=== PATIENT | male | born 2000 | race African-American/Black ===

== ENCOUNTER 2024-01-25 20:07 | Inpatient (IN) | payer OTHER ==
[~2024-01-25] VITALS: Ht 167.6 cm; Wt 83.8 kg
[2024-01-25] MEDS: EPINEPHrine INJ 1 MG/ML 1ML AMP IM STA (20:26)
[2024-01-25] MEDS: ONDANSETRON 4MG 2ML VIAL IV ONE (20:30)
[2024-01-25] MEDS: FAMOTIDINE 20MG/2ML VIAL IVP ONE (20:30)
[2024-01-25] MEDS: diphenhydrAMINE 50MG/ML VIAL IV ONE (20:30)
[2024-01-25] MEDS: SODIUM CHLORIDE IV ONE (20:31)
[2024-01-25 20:37] LABS: BASO % 0.3 % (0.0-1.0); EOS # 0.2 10^3/uL (0.0-0.5); EOS % 1.5 % (0.0-3.0); HEMATOCRIT 45.5 % (42.0-52.0); HEMOGLOBIN 15.5 g/dl (13.5-17.5); LYMPH # 1.9 10^3/uL (1.5-5.0); LYMPH % 16.3 % (24.0-44.0); MEAN CORPUSCULAR HEMOGLOBIN 26.1 pg (27.0-33.0); MEAN CORPUSCULAR HGB CONC 34.1 g/dl (32.0-36.5); MEAN CORPUSCULAR VOLUME 76.6 fl (80.0-96.0); MONO # 0.6 10^3/uL (0.0-0.8); MONO % 5.2 % (2.0-8.0); NEUTROPHILS % 76.3 % (36.0-66.0); PLATELET COUNT, AUTOMATED 333 10^3/uL (150-450); RED BLOOD COUNT 5.94 10^6/uL (4.30-6.10); WHITE BLOOD COUNT 11.8 10^3/uL (4.0-10.0)
[2024-01-25 20:39] LABS: ABG BASE EXCESS -2.3 (-2.0-2.0); ABG HCO3 20.5 MMOL/L (22.0-26.0); ABG O2 SATURATION 94.3 % (95.0-99.0); ABG PARTIAL PRESSURE CO2 30.4 mmHg (35.0-45.0); ABG STANDARD HCO3 22.5 MMOL/L. (22.0-26.0); ABG TOTAL CO2 21.4 MMOL/L (22.0-29.0); ABG pH (ARTERIAL) 7.447 UNITS (7.350-7.450)
[2024-01-25] MEDS: IPRATROPIUM 0.5MG/ALBUTEROL 2.5MG INH SOL UD 3ML (DUONEB) NEB ONE ×2 (20:46)
[2024-01-25 21:03] LABS: ALBUMIN 3.3 G/DL (3.2-5.2); ALKALINE PHOSPHATASE 70 U/L (46-116); ALT/SGPT 57 U/L (7.0-40); AST/SGOT 42 U/L (<34); BILIRUBIN,DIRECT 0.2 MG/DL (<0.4); BILIRUBIN,TOTAL 0.6 MG/DL (0.3-1.2); BLOOD UREA NITROGEN 10 MG/DL (9-23); CARBON DIOXIDE LEVEL 25 MMOL/L (20-31); CHLORIDE LEVEL 101 MMOL/L (98-107); CREATININE FOR GFR 1.08 MG/DL (0.70-1.30); GLOMERULAR FILTRATION RATE > 60.0 (>60); GLUCOSE, FASTING 111 MG/DL (60-100); SODIUM LEVEL 134 MMOL/L (136-145); TOTAL PROTEIN 7.5 G/DL (5.7-8.2)
[2024-01-25] MEDS: LEVALBUTEROL 1.25MG 0.5ML CONCENTRATE NEB NEB ONE ×2 (22:04)
[2024-01-26 00:59] VITALS: O2SAT 85
[2024-01-26] MEDS: AZITHROMYCIN INJ 500 MG, VIAL MATE ADAPTER 1 EACH in NS 250 ML IV ONE (01:51)
[2024-01-26] MEDS ORDERED: ISOVUE-370 76% 100ML VIAL As Ordered ONE (01:58)
[2024-01-26] MEDS: cefTRIAXone SOD 1 GM in D5W MINI-BAG PLUS 50 ML IV ONE (03:13)
[2024-01-26] MEDS ORDERED: MOM 30ML SUSPENSION UDC PO PRN (04:35)
[2024-01-26] MEDS ORDERED: ACETAMINOPHEN 325 MG TAB PO PRN (04:35)
[2024-01-26] MEDS ORDERED: MAALOX 30 ML SUSP *UDC PO PRN (04:35)
[2024-01-26] MEDS ORDERED: diphenhydrAMINE 50MG/ML VIAL IV PRN (04:35)
[2024-01-26 04:50] LABS: CK-MB VALUE MASS 1.3 NG/ML (<3.6)
[2024-01-26 05:20] LABS: CPK CREATINE PHOSPHOKINASE 786 U/L (46-171); MB/CK RELATIVE INDEX 0.16 (< OR =4)
[2024-01-26] MEDS ORDERED: BACL10TA2 PO (05:27)
[2024-01-26] MEDS ORDERED: HOME MED LIST COMPLETE! XX SCH (05:30)
[2024-01-26] MEDS: NS 1,000 ML IV SCH (06:35)
[2024-01-26 06:44] LABS: HEMATOCRIT 40.7 % (42.0-52.0); HEMOGLOBIN 13.9 g/dl (13.5-17.5); MEAN CORPUSCULAR HEMOGLOBIN 25.9 pg (27.0-33.0); MEAN CORPUSCULAR HGB CONC 34.2 g/dl (32.0-36.5); MEAN CORPUSCULAR VOLUME 75.9 fl (80.0-96.0); PLATELET COUNT, AUTOMATED 318 10^3/uL (150-450); RED BLOOD COUNT 5.36 10^6/uL (4.30-6.10); WHITE BLOOD COUNT 12.9 10^3/uL (4.0-10.0)
[2024-01-26 07:46] LABS: ALKALINE PHOSPHATASE 66 U/L (46-116); ALT/SGPT 50 U/L (7.0-40); AST/SGOT 28 U/L (<34); BILIRUBIN,TOTAL 0.4 MG/DL (0.3-1.2); BLOOD UREA NITROGEN 9 MG/DL (9-23); CALCIUM LEVEL 8.9 MG/DL (8.5-10.1); CARBON DIOXIDE LEVEL 23 MMOL/L (20-31); CHLORIDE LEVEL 107 MMOL/L (98-107); CREATININE FOR GFR 0.95 MG/DL (0.70-1.30); GLOMERULAR FILTRATION RATE > 60.0 (>60); GLUCOSE, FASTING 140 MG/DL (60-100); MAGNESIUM LEVEL 2.3 MG/DL (1.8-2.4); POTASSIUM SERUM 5.3 MMOL/L (3.5-5.1); SODIUM LEVEL 139 MMOL/L (136-145)
[2024-01-26] MEDS: ENOXAPARIN 40MG/0.4ML SYRINGE (J1650 PER 10MG) SC SCH (09:00)
[2024-01-26] MEDS: FAMOTIDINE 20 MG TAB PO SCH (11:31)
[2024-01-26] MEDS: predniSONE 20 MG TAB PO SCH (11:31)
[2024-01-26 17:03] VITALS: BP 136/68; TEMP 98.2; O2SAT 93
[2024-01-26 19:51] VITALS: BP 142/65; TEMP 98.5; O2SAT 92
[2024-01-26] MEDS: AZITHROMYCIN INJ 500 MG, VIAL MATE ADAPTER 1 EACH in NS 250 ML IV SCH (20:02)
[2024-01-26] MEDS: cefTRIAXone SOD 1 GM in D5W MINI-BAG PLUS 50 ML IV SCH (21:23)
[2024-01-27 03:26] VITALS: BP 130/60; TEMP 98.2; O2SAT 94
[2024-01-27 08:00] VITALS: BP 132/63; TEMP 97.7; O2SAT 94
[2024-01-27 09:28] LABS: BASO # 0.1 10^3/uL (0.0-0.2); BASO % 0.5 % (0.0-1.0); EOS % 0.2 % (0.0-3.0); HEMATOCRIT 44.1 % (42.0-52.0); HEMOGLOBIN 14.9 g/dl (13.5-17.5); LYMPH # 1.8 10^3/uL (1.5-5.0); LYMPH % 18.8 % (24.0-44.0); MEAN CORPUSCULAR HEMOGLOBIN 26.2 pg (27.0-33.0); MEAN CORPUSCULAR HGB CONC 33.8 g/dl (32.0-36.5); MEAN CORPUSCULAR VOLUME 77.6 fl (80.0-96.0); MONO # 0.4 10^3/uL (0.0-0.8); NEUTROPHILS # 7.3 10^3/uL (1.5-8.5); NEUTROPHILS % 75.1 % (36.0-66.0); PLATELET COUNT, AUTOMATED 364 10^3/uL (150-450); RED BLOOD COUNT 5.68 10^6/uL (4.30-6.10); WHITE BLOOD COUNT 9.8 10^3/uL (4.0-10.0)
[2024-01-27 09:56] LABS: ALBUMIN 2.9 G/DL (3.2-5.2); ALKALINE PHOSPHATASE 61 U/L (46-116); ALT/SGPT 51 U/L (7.0-40); AST/SGOT 64 U/L (<34); BILIRUBIN,DIRECT 0.1 MG/DL (<0.4); BILIRUBIN,TOTAL 0.5 MG/DL (0.3-1.2); BLOOD UREA NITROGEN 12 MG/DL (9-23); CALCIUM LEVEL 8.5 MG/DL (8.5-10.1); CARBON DIOXIDE LEVEL 21 MMOL/L (20-31); CHLORIDE LEVEL 108 MMOL/L (98-107); CREATININE FOR GFR 0.86 MG/DL (0.70-1.30); GLOMERULAR FILTRATION RATE > 60.0 (>60); GLUCOSE, FASTING 93 MG/DL (60-100); MAGNESIUM LEVEL 2.1 MG/DL (1.8-2.4); PHOSPHORUS LEVEL 2.9 MG/DL (2.5-4.9); POTASSIUM SERUM 7.2 MMOL/L (3.5-5.1); SODIUM LEVEL 136 MMOL/L (136-145); TOTAL PROTEIN 6.9 G/DL (5.7-8.2)
[2024-01-27] MEDS ORDERED: EPIP0.3I2 IM (11:14)
[2024-01-27] MEDS ORDERED: AZIT500T5 PO (11:14)
[2024-01-27] MEDS ORDERED: PRED20TA PO (11:14)
[2024-01-27] MEDS ORDERED: CEFD1CAP9 PO (11:14)
[2024-01-27 11:23] LABS: POTASSIUM SERUM 4.5 MMOL/L (3.5-5.1)
[2024-01-27 12:00] VITALS: BP 136/62; TEMP 97.9; O2SAT 93
[2024-01-27] MEDS ORDERED: PEPC1TAB5 PO (12:09)
[2024-01-27] MEDS ORDERED: BENA25CA4 PO (12:09)
== END 2024-01-27 13:00 | disposition home or self-care (01) | DRG 915 ==
LOC: M ED 20:07 → M ED INP 01-26 04:34 → M MS4PR 01-26 16:50
PROVIDERS: ADMIT Internal Medicine; ATTEND Internal Medicine
DX: T78.09XA Anaphylactic reaction due to other food products, initial encounter (principal); J15.7 Pneumonia due to Mycoplasma pneumoniae; J96.01 Acute respiratory failure with hypoxia; G47.33 Obstructive sleep apnea (adult) (pediatric); Z79.899 Other long term (current) drug therapy